=== PATIENT | female | born 1965 | race Caucasian/White ===

== ENCOUNTER 2017-04-01 13:55 | Inpatient (IN) | payer OTHER ==
[~2017-04-01] VITALS: Ht 162.6 cm; Wt 62.4 kg
[2017-04-01] MEDS ORDERED: ONDANSETRON 2MG/ML, 2ML IVPush ONE (15:00)
[2017-04-01] MEDS ORDERED: DICYCLOMINE 10 MG/ML, 2ML IM ONE (15:00)
[2017-04-01] MEDS ORDERED: SODIUM CHLORIDE 0.9% 1,000ML IVBOLUS ONE ×3 (15:00→17:30)
[2017-04-01] MEDS ORDERED: FAMOTIDINE 20 MG/2 ML IVP ONE (15:00)
[2017-04-01] MEDS ORDERED: PLEASE ENTER ALLERGIES MC SCH ×2 (15:00)
[2017-04-01] MEDS ORDERED: SODIUM CHLORIDE FLUSH 10ML SYR IVF ONE (15:00)
[2017-04-01 15:02] LABS: HEMATOCRIT 46.5 % (34.6-47.8); HEMOGLOBIN 16.1 g/dL (11.7-16.4); WHITE BLOOD COUNT 19.5 x10^3/uL (3.4-10)
[2017-04-01 15:16] LABS: BLOOD UREA NITROGEN 8 mg/dL (7-18)
[2017-04-01 15:19] LABS: ASPARTATE AMINO TRANSFERASE 72 U/L (15-37)
[2017-04-01] MEDS ORDERED: ONDANSETRON 2MG/ML, 2ML ONE (15:27)
[2017-04-01] MEDS ORDERED: MORPHINE SULFATE 4 MG/ML, 1ML ONE ×2 (15:27→18:05)
[2017-04-01] MEDS ORDERED: FAMOTIDINE 20 MG/2 ML ONE (15:27)
[2017-04-01 15:28] LABS: DIFF TOTAL CELLS COUNTED 100 CELL DIFF
[2017-04-01 15:29] LABS: VERIFY COUNTS? YES
[2017-04-01] MEDS: MORPHINE SULFATE 4 MG/ML, 1ML IVPush PRN ×2 (15:43→18:28)
[2017-04-01] MEDS ORDERED: OMNIPAQUE 350 MG/ML, 100ML BOTTLE ONE (17:59)
[2017-04-01] MEDS ORDERED: SODIUM CHLORIDE FLUSH 10ML SYR IVF PRN (18:30)
[2017-04-01] MEDS ORDERED: ONDANSETRON ODT 4 MG PO PRN (19:30)
[2017-04-01] MEDS ORDERED: LABETALOL 5MG/ML, 20ML IVPush PRN (19:30)
[2017-04-01] MEDS ORDERED: TEMAZEPAM 15 MG CAPSULE PO PRN (19:30)
[2017-04-01] MEDS ORDERED: ACETAMINOPHEN 325 MG TABLET PO PRN (19:30)
[2017-04-01] MEDS ORDERED: POTASSIUM CHLORIDE 20 MEQ TAB.ER.PRT PO ONE (19:30)
[2017-04-01] MEDS ORDERED: ONDANSETRON 2MG/ML, 2ML IVPush PRN (19:30)
[2017-04-01] MEDS ORDERED: POTASSIUM CHLORIDE 20 MEQ TAB.ER.PRT ONE (20:36)
[2017-04-01] MEDS ORDERED: NICOTINE 14MG/24 HR PATCH.TD24 ONE (20:37)
[2017-04-01] MEDS ORDERED: ENOXAPARIN 40 MG/0.4 ML ONE (20:37)
[2017-04-01] MEDS: NICOTINE 14MG/24 HR PATCH.TD24 TD SCH (20:42)
[2017-04-01] MEDS: ENOXAPARIN 40 MG/0.4 ML SQ SCH (20:43)
[2017-04-01] MEDS: POTASSIUM CHLORIDE 40 MEQ in D5%-0.9% NACL 1,000 ML IV SCH (20:43)
[2017-04-01] MEDS: VANCOMYCIN 50 MG/ML ORAL SUSP PO SCH (20:43)
[2017-04-01] MEDS: MAGNESIUM OXIDE 400 MG TABLET PO SCH (21:00)
[2017-04-01] MEDS: FAMOTIDINE 20 MG/2 ML IVPush SCH (21:00)
[2017-04-02] VITALS: BP 129/60
[2017-04-02] MEDS: morphine SULFATE 10 MG/ML, 1ML IVPush PRN ×5 (00:54→19:43)
[2017-04-02 01:27] VITALS: BP 125/81
[2017-04-02] MEDS: VANCOMYCIN 50 MG/ML ORAL SUSP PO SCH ×4 (05:01→20:37)
[2017-04-02] MEDS: POTASSIUM CHLORIDE 40 MEQ in D5%-0.9% NACL 1,000 ML IV SCH ×2 (06:10→12:18)
[2017-04-02 06:32] LABS: HEMATOCRIT 36.8 % (34.6-47.8); HEMOGLOBIN 12.5 g/dL (11.7-16.4); WHITE BLOOD COUNT 11.7 x10^3/uL (3.4-10)
[2017-04-02 06:49] LABS: ASPARTATE AMINO TRANSFERASE 36 U/L (15-37); BLOOD UREA NITROGEN 5 mg/dL (7-18)
[2017-04-02] MEDS: MAGNESIUM OXIDE 400 MG TABLET PO SCH (08:10)
[2017-04-02] MEDS: FAMOTIDINE 20 MG/2 ML IVPush SCH ×2 (08:10→20:38)
[2017-04-02 08:32] VITALS: BP 130/86
[2017-04-02] MEDS ORDERED: MAGNESIUM SULFATE PMX 4GM/100M 100 ML IV ONE (11:30)
[2017-04-02] MEDS: POTASSIUM CHLORIDE 20 MEQ TAB.ER.PRT PO SCH ×2 (11:44→17:58)
[2017-04-02 13:40] VITALS: BP 112/76
[2017-04-02] MEDS ORDERED: NS + 20MEQ KCL 1,000 ML IV SCH (15:00)
[2017-04-02 18:56] VITALS: BP 118/75
[2017-04-02] MEDS: NICOTINE 14MG/24 HR PATCH.TD24 TD SCH (19:43)
[2017-04-02] MEDS: ENOXAPARIN 40 MG/0.4 ML SQ SCH (19:43)
[2017-04-03 00:36] VITALS: BP 122/79
[2017-04-03] MEDS: morphine SULFATE 10 MG/ML, 1ML IVPush PRN ×4 (03:56→23:43)
[2017-04-03] MEDS: VANCOMYCIN 50 MG/ML ORAL SUSP PO SCH ×4 (03:56→20:15)
[2017-04-03] MEDS ORDERED: NS + 20MEQ KCL 1,000 ML IV SCH (04:30)
[2017-04-03 05:56] LABS: HEMATOCRIT 33.7 % (34.6-47.8); HEMOGLOBIN 11.5 g/dL (11.7-16.4); WHITE BLOOD COUNT 5.6 x10^3/uL (3.4-10)
[2017-04-03 06:08] LABS: ASPARTATE AMINO TRANSFERASE 132 U/L (15-37); BLOOD UREA NITROGEN 1 mg/dL (7-18)
[2017-04-03 08:20] VITALS: BP 128/90
[2017-04-03] MEDS: FAMOTIDINE 20 MG/2 ML IVPush SCH ×2 (08:46→20:35)
[2017-04-03] MEDS ORDERED: POTASSIUM PHOSPHATE 44 MEQ in SODIUM CHLORIDE 0.9% 500 ML IV ONE (10:00)
[2017-04-03] MEDS: LACTOBACILLUS CHEW TABLET PO SCH ×3 (11:50→20:36)
[2017-04-03] MEDS ORDERED: CALCIUM GLUCONATE 4.6 MEQ in SODIUM CHLORIDE 0.9% 50 ML IV ONE (14:30)
[2017-04-03 16:20] VITALS: BP 142/94
[2017-04-03 19:13] VITALS: BP 146/98
[2017-04-03] MEDS: ENOXAPARIN 40 MG/0.4 ML SQ SCH (19:30)
[2017-04-03] MEDS: NICOTINE 14MG/24 HR PATCH.TD24 TD SCH (20:36)
[2017-04-04 02:54] VITALS: BP 142/92
[2017-04-04] MEDS: VANCOMYCIN 50 MG/ML ORAL SUSP PO SCH ×3 (03:14→14:15)
[2017-04-04 05:47] LABS: BLOOD UREA NITROGEN 4 mg/dL (7-18)
[2017-04-04 05:50] LABS: ASPARTATE AMINO TRANSFERASE 66 U/L (15-37)
[2017-04-04] MEDS: LACTOBACILLUS CHEW TABLET PO SCH ×2 (06:00→12:00)
[2017-04-04 08:21] VITALS: BP 149/99
[2017-04-04] MEDS: FAMOTIDINE 20 MG/2 ML IVPush SCH (09:10)
[2017-04-04] MEDS ORDERED: ALPR-475 PO (13:05)
[2017-04-04] MEDS ORDERED: METR500T PO (13:05)
[2017-04-04 13:33] VITALS: BP 133/92
== END 2017-04-04 15:21 | disposition home or self-care (01) | DRG 872 ==
LOC: ED 17:04 → EDIP 18:22 → 4WST 21:53
PROVIDERS: ADMIT Internal Medicine; ATTEND Internal Medicine
DX: A41.9 Sepsis, unspecified organism (principal); A04.7 Enterocolitis due to Clostridium difficile; E44.0 Moderate protein-calorie malnutrition; E87.1 Hypo-osmolality and hyponatremia; E83.42 Hypomagnesemia; E86.0 Dehydration; E87.6 Hypokalemia; F17.200 Nicotine dependence, unspecified, uncomplicated; I10 Essential (primary) hypertension; F06.4 Anxiety disorder due to known physiological condition; M54.5 Low back pain; E83.39 Other disorders of phosphorus metabolism; Z88.0 Allergy status to penicillin; Z88.5 Allergy status to narcotic agent; Z68.23 Body mass index [BMI] 23.0-23.9, adult
CPT/HCPCS: 36415; 74020; 74177; 80053; 81003; 82330; 83605; 83690; 83735; 84100; 84145; 85025; 87040; 87324; 89055; 93005; 96361; 96372; 96374; 96375; 96376; J0610; J1650; J2405; J3370; J3480; J7042; Q9967; J0500; J2270; J3475; J7030; J7040; S0028

== ENCOUNTER → 2017-09-02 | Outpatient (CLI) | payer OTHER ==
[~2017-09-02] MED LIST: ALPR-475 PO; METR500T PO
[2017-09-02 08:35] LABS: BASOPHILS # (AUTO) 0.08 x10^3/uL (0-0.1); BASOPHILS % (AUTO) 1 % (0-1); EOSINOPHILS # (AUTO) 0.03 x10^3/uL (0-0.4); EOSINOPHILS % (AUTO) 0 % (1-7); LYMPHOCYTES # (AUTO) 1.85 x10^3/uL (1-3.4); LYMPHOCYTES % (AUTO) 23 % (22-44); MD NO; MEAN CORPUSCULAR HEMOGLOBIN 33.2 pg (27.0-34.8); MEAN CORPUSCULAR HGB CONC 34.1 g/dL (32.4-35.8); MEAN CORPUSCULAR VOLUME 97.4 fL (80-100); MEAN PLATELET VOLUME 8.8 fL (7.4-10.4); MONOCYTES # (AUTO) 0.62 x10^3/uL (0.2-0.8); MONOCYTES % (AUTO) 8 % (2-9); NEUTROPHILS # (AUTO) 5.34 x10^3/uL (1.8-6.8); NEUTROPHILS % (AUTO) 68 % (42-75); PLATELET COUNT 189 x10^3/uL (130-400); RED BLOOD COUNT 4.77 x10^6/uL (3.82-5.3); RED CELL DISTRIBUTION WIDTH 14.5 % (9.6-15.2)
[2017-09-02 08:43] LABS: ALBUMIN 4.4 g/dL (3.4-5.0); ANION GAP 11 mmol/L (5-15); CALCIUM 9.3 mg/dL (8.5-10.1); CHLORIDE 98 mmol/L (98-107); CHOLESTEROL, TOTAL 252 mg/dL (140-239)
[2017-09-02 08:52] LABS: ALANINE AMINOTRANSFERASE 89 U/L (12-78); ALKALINE PHOSPHATASE 104 U/L (45-117); CHOL/HDL RATIO 2.8; CREATININE 0.72 mg/dL (0.55-1.02); HDL CHOL % 35 % (28-40); HDL CHOLESTEROL (DIRECT) 89 mg/dL (40-60); LDL CHOLESTEROL,CALCULATED 143 mg/dL (54-169); LDL/HDL RATIO 1.6 (0.5-3.0); TOTAL PROTEIN 7.8 g/dL (6.4-8.2); TRIGLYCERIDES 100 mg/dL (50-200); VLDL CHOLESTEROL 20 mg/dL (0-25)
== END | disposition home or self-care (01) ==
LOC: LAB 08:19
PROVIDERS: ATTEND Nurse Practitioner Family
DX: F41.9 Anxiety disorder, unspecified (principal); L65.8 Other specified nonscarring hair loss; R00.2 Palpitations; R53.83 Other fatigue; R63.4 Abnormal weight loss
CPT/HCPCS: 36415; 80053; 80061; 82306; 84436; 84443; 84481; 85025

== ENCOUNTER 2019-01-09 07:31 | Emergency (ER) | payer MEDICAID ==
[~2019-01-09] VITALS: Ht 162.6 cm; Wt 64.0 kg
--- NOTE | 2019-01-09 07:59 | NUR ---
pt has co of leg swelling for 3 days and has developed rash on lower extremities. pt also states having "to breath deeper". denies any pain, nausea, vomiting. vs stable
[2019-01-09] MEDS ORDERED: METO25TA91 PO (08:09)
[2019-01-09] MEDS ORDERED: ESTR10TA9 PO (08:09)
[2019-01-09] MEDS ORDERED: chole (08:09)
[2019-01-09 08:38] LABS: ALANINE AMINOTRANSFERASE 21 U/L (12-78); ANION GAP 3 mmol/L (5-15); C-REACTIVE PROTEIN, QUANT 0.29 mg/dL (0.02-0.49); CALCIUM 8.7 mg/dL (8.5-10.1); CHLORIDE 110 mmol/L (98-107)
[2019-01-09 08:44] LABS: BASOPHILS # (AUTO) 0.04 x10^3/uL (0-0.1); BASOPHILS % (AUTO) 1 % (0-1); EOSINOPHILS # (AUTO) 0.09 x10^3/uL (0-0.4); EOSINOPHILS % (AUTO) 1 % (1-7); LYMPHOCYTES # (AUTO) 1.44 x10^3/uL (1-3.4); LYMPHOCYTES % (AUTO) 18 % (22-44); MD NO; MEAN CORPUSCULAR HEMOGLOBIN 30.5 pg (27.0-34.8); MEAN CORPUSCULAR HGB CONC 33.1 g/dL (32.4-35.8); MEAN CORPUSCULAR VOLUME 92.2 fL (80-100); MEAN PLATELET VOLUME 9.2 fL (7.4-10.4); MONOCYTES # (AUTO) 0.47 x10^3/uL (0.2-0.8); MONOCYTES % (AUTO) 6 % (2-9); NEUTROPHILS # (AUTO) 6.13 x10^3/uL (1.8-6.8); NEUTROPHILS % (AUTO) 75 % (42-75); PLATELET COUNT 184 x10^3/uL (130-400); RED BLOOD COUNT 4.48 x10^6/uL (3.82-5.3)
[2019-01-09 08:45] LABS: ALKALINE PHOSPHATASE 66 U/L (45-117); BILIRUBIN,TOTAL 0.4 mg/dL (0.2-1.0); TOTAL PROTEIN 5.5 g/dL (6.4-8.2)
[2019-01-09 08:46] LABS: HCT (SEDRATE) 41.3 % (34.6-47.8)
[2019-01-09 08:52] LABS: INTERNATIONAL NORMALIZED RATIO 0.91 (0.93-1.1); PROTHROMBIN TIME 9.6 Seconds (9.6-11.5)
[2019-01-09 09:46] VITALS: BP 108/75
--- NOTE | 2019-01-09 10:21 | NUR ---
PT Petros W INSTRUCTIONS AND ALL BELONGINGS
== END 2019-01-09 10:23 | disposition home or self-care (01) ==
LOC: ED 09:47
DX: R60.0 Localized edema (principal); I10 Essential (primary) hypertension; F41.9 Anxiety disorder, unspecified
CPT/HCPCS: 36415; 80053; 85025; 85610; 85651; 85730; 86140; 93005; 93970; 99284

== ENCOUNTER 2020-10-28 13:55 | Inpatient (IN) | payer MEDICAID ==
[~2020-10-28] VITALS: Ht 165.1 cm; Wt 59.3 kg
[~2020-10-28 13:55] MED LIST changes: -ALPR-475 PO; +ALPR0.5T7 PO; +ESTR10TA9 PO; +METO25TA91 PO; +chole
[2020-10-28] MEDS ORDERED: ALBUTEROL/IPRATROPIUM 2.5MG/0.5MG, 3 ML ONE (14:26)
[2020-10-28] MEDS ORDERED: PLEASE ENTER HEIGHT AND WEIGHT MC SCH (14:30)
[2020-10-28] MEDS ORDERED: ALBUTEROL/IPRATROPIUM 2.5MG/0.5MG, 3 ML NPPB ONE (14:30)
--- NOTE | 2020-10-28 14:37 | NUR ---
SISTER: CAPRICE [phone]
--- NOTE | 2020-10-28 14:37 | NUR ---
ASSUMED CARE OF PATIENT. PATIENT BIB [facility] FOR RIGHT SIDED FACE SWELLING. VS STABLE. NO ACUTE DISTRESS NOTED. PT SEEN BY DR DYSON. CALL LIGHT IN PLACE. WILL CONTINUE TO MONITOR.
[2020-10-28 14:43] LABS: ALBUMIN 4.2 g/dL (3.4-5.0); ANION GAP 8 mmol/L (5-15); CALCIUM 8.6 mg/dL (8.5-10.1); CHLORIDE 103 mmol/L (98-107)
[2020-10-28 14:45] LABS: CREATININE 0.47 mg/dL (0.55-1.02)
[2020-10-28 14:57] LABS: BASOPHILS % (AUTO) 1 % (0-1); EOSINOPHILS % (AUTO) 2 % (1-7); LYMPHOCYTES % (AUTO) 20 % (22-44); MEAN CORPUSCULAR HEMOGLOBIN 34.5 pg (27.0-34.8); MEAN CORPUSCULAR HGB CONC 34.4 g/dL (32.4-35.8); MEAN PLATELET VOLUME 8.9 fL (7.4-10.4); MONOCYTES % (AUTO) 5 % (2-9); NEUTROPHILS % (AUTO) 72 % (42-75); PLATELET COUNT 116 x10^3/uL (130-400); RED BLOOD COUNT 4.64 x10^6/uL (3.82-5.3); RED CELL DISTRIBUTION WIDTH 16.7 % (9.6-15.2)
[2020-10-28 14:59] LABS: MD NO
--- NOTE | 2020-10-28 14:59 | NUR ---
PT HAVING SOME ANXIETY. FAMILY IN ROOM. DR DYSON AWARE OF VS.
--- NOTE | 2020-10-28 15:08 | NUR ---
PT REPORTS SHE DRINKS A PINT A DAY. PT REPORTS SHE IS NOT DETOXING YET. VS STABLE. DR DYSON ARE OF VS. EKG DONE PER DR DYSON. PT WENT TO CT
[2020-10-28] MEDS ORDERED: OMNIPAQUE 350 MG/ML, 100ML BOTTLE ONE (15:20)
--- NOTE | 2020-10-28 15:33 | NUR ---
PT RESTING IN ROOM. ENERGY MANAGEMENT SPECIALIST ON. NSR NOTED. CALL LIGHT IN PLACE. WILL CONTINUE TO MONITOR .
--- NOTE | 2020-10-28 15:57 | NUR ---
DR DYSON AWARE OF VS. NO NEW ORDERS AT THIS TIME. PT RESTING IN ROOM WITH EYES CLOSED. SCULPTURE CONSERVATOR ON. SINUS TACH NOTED. WILL CONTINUE TO MONITOR.
--- NOTE | 2020-10-28 16:19 | NUR ---
DR DYSON HAS UPDATED PATIENT.
--- NOTE | 2020-10-28 16:28 | NUR ---
PT AMBULATED AROUND ROOM/FLORES PT'S ROOM AIR IS 82%. DR DYSON. AWARE. PT NOW RESTING IN ROOM. ON 3L NC AT 93%
[2020-10-28] MEDS ORDERED: CEFTRIAXONE PMX 1GM/50ML 50 ML IV ONE (17:00)
[2020-10-28] MEDS ORDERED: NEO/POLY/HC EAR SUSP 10ML RIGHT EAR SCH ×2 (17:00→21:00)
[2020-10-28] MEDS ORDERED: SODIUM CHLORIDE 0.9% 1,000ML IVBOLUS ONE (17:00)
[2020-10-28] MEDS ORDERED: CEFTRIAXONE PMX 1GM/50ML 50 ML ONE (17:16)
--- NOTE | 2020-10-28 17:20 | NUR ---
BOTH BLOOD CULTURES DRAWN BEFORE ABX GIVEN
--- NOTE | 2020-10-28 17:22 | NUR ---
BOTH BLOOD CULTURES DRAWN BEFORE ABX GIVEN
--- NOTE | 2020-10-28 17:25 | NUR ---
PT WENT TO CT
[2020-10-28] MEDS ORDERED: OMNIPAQUE 350 MG/ML, 75ML BOTTLE ONE (17:43)
--- NOTE | 2020-10-28 18:04 | NUR ---
PT BACK FROM CT. VS STABLE. NO ACUTE DISTRESS NOTED. CALL LIGHT IN PLACE. WILL CONTINUE TO MONITOR.
[2020-10-28] MEDS ORDERED: CHLORDIAZEPOXIDE 10 MG CAPSULE PO PRN (18:30)
--- NOTE | 2020-10-28 18:40 | NUR ---
PT WATCHING TV IN ROOM. NO ACUTE DISTRESS NOTED. HYPERCIL CORE TRANSFORMER ASSEMBLER ON. SINSU TACH NOTED. CALL LIGHT IN PLACE. WILL CONTINUE TO MONITOR.
--- NOTE | 2020-10-28 18:49 | NUR ---
REC'D REPORT FROM LOLY MAYORGA
--- NOTE | 2020-10-28 18:49 | NUR ---
REPORT GIVEN TO LOLY AKBAR
[2020-10-28] MEDS ORDERED: ONDANSETRON ODT 4 MG PO PRN (19:00)
[2020-10-28] MEDS ORDERED: BISACODYL 10 MG SUPP PR PRN (19:00)
[2020-10-28] MEDS ORDERED: POLYETHYLENE GLYCOL 17 GM PACKET PO PRN (19:00)
[2020-10-28] MEDS ORDERED: CHLORDIAZEPOXIDE 25 MG CAPSULE ONE (19:54)
[2020-10-28] MEDS: CHLORDIAZEPOXIDE 25 MG CAPSULE PO PRN (19:57)
--- NOTE | 2020-10-28 19:58 | NUR ---
PT AMBULATED FROM BATHROOM, RETURNED TO ROOM AND STATED SHE WAS FEELING VERY ANXIOUS AND TREMORS WERE NOTED. PT GIVEN PO LIBRIUM.
[2020-10-28 20:00] VITALS: BP 160/98
[2020-10-28] MEDS ORDERED: METO25TA4 PO (20:36)
[2020-10-28] MEDS ORDERED: LOSA50TA14 PO (20:36)
[2020-10-28] MEDS ORDERED: HYDR-826 PO (20:36)
[2020-10-28] MEDS ORDERED: FLUT15.812 NAS (20:36)
[2020-10-28] MEDS ORDERED: AZEL6DRO2 EACHEYE (20:36)
[2020-10-28] MEDS: KETOROLAC 30 MG/1 ML IM PRN (21:48)
[2020-10-28] MEDS: SODIUM CHLORIDE 0.9% 1,000 ML IV SCH (21:55)
[2020-10-28] MEDS: HEPARIN 5,000 UNITS/ML, 1ML SQ SCH (21:55)
[2020-10-28] MEDS: THIAMINE 100MG TABLET PO SCH (21:56)
[2020-10-28] MEDS: LORazepam 2 MG/ML, 1ML IVPush PRN (22:42)
[2020-10-28] MEDS: AZITHROMYCIN 500 MG in SODIUM CHLORIDE 0.9% 250 ML IV SCH (22:57)
[2020-10-29 02:00] VITALS: BP 163/93
[2020-10-29] MEDS: ACETAMINOPHEN 325 MG TABLET PO PRN ×2 (03:49→22:32)
[2020-10-29] MEDS: LORazepam 2 MG/ML, 1ML IVPush PRN ×2 (03:50→10:08)
[2020-10-29] MEDS: HEPARIN 5,000 UNITS/ML, 1ML SQ SCH ×3 (05:50→23:08)
[2020-10-29] MEDS: CHLORDIAZEPOXIDE 25 MG CAPSULE PO PRN ×2 (05:50→22:33)
[2020-10-29 05:56] LABS: BASOPHILS % (AUTO) 1 % (0-1); EOSINOPHILS % (AUTO) 1 % (1-7); LYMPHOCYTES % (AUTO) 10 % (22-44); MEAN CORPUSCULAR HGB CONC 34.1 g/dL (32.4-35.8); MEAN PLATELET VOLUME 8.8 fL (7.4-10.4); MONOCYTES % (AUTO) 5 % (2-9); NEUTROPHILS % (AUTO) 83 % (42-75); RED CELL DISTRIBUTION WIDTH 16.3 % (9.6-15.2)
[2020-10-29 06:08] LABS: CHLORIDE 98 mmol/L (98-107)
[2020-10-29 06:12] LABS: ANION GAP 8 mmol/L (5-15); CALCIUM 8.4 mg/dL (8.5-10.1); CREATININE 0.31 mg/dL (0.55-1.02)
[2020-10-29 06:28] LABS: PLATELET COUNT 87 x10^3/uL (130-400)
[2020-10-29 06:29] LABS: MD SCAN
[2020-10-29 08:00] VITALS: BP 138/94
[2020-10-29] MEDS: SODIUM CHLORIDE 0.9% 1,000 ML IV SCH ×2 (08:10→18:27)
[2020-10-29] MEDS: SENNA/DOCUSATE TABLET PO SCH (10:02)
[2020-10-29] MEDS: FOLIC ACID 1 MG TABLET PO SCH (10:02)
[2020-10-29] MEDS: MULTIVITAMINS/MINERALS TABLET PO SCH (10:02)
[2020-10-29] MEDS: THIAMINE 100MG TABLET PO SCH ×2 (10:02→22:32)
[2020-10-29] MEDS: NEO/POLY/HC EAR SUSP 10ML RIGHT EAR SCH ×3 (10:02→22:33)
[2020-10-29 12:45] VITALS: BP 142/96
[2020-10-29] MEDS: CEFTRIAXONE PMX 1GM/50ML 50 ML IV SCH (18:28)
[2020-10-29 20:00] VITALS: BP 143/86
[2020-10-29 22:29] VITALS: BP 136/91
[2020-10-29] MEDS: METOPROLOL TARTRATE 25 MG TAB PO SCH (22:32)
[2020-10-29] MEDS: AZITHROMYCIN 500 MG in SODIUM CHLORIDE 0.9% 250 ML IV SCH (23:06)
[2020-10-29] MEDS: KETOROLAC 30 MG/1 ML IM PRN (23:07)
[2020-10-30 01:04] VITALS: BP 141/87
[2020-10-30] MEDS: SODIUM CHLORIDE 0.9% 1,000 ML IV SCH ×2 (03:30→16:17)
[2020-10-30] MEDS: LORazepam 2 MG/ML, 1ML IVPush PRN ×2 (04:34→09:05)
[2020-10-30 04:58] LABS: BASOPHILS % (AUTO) 1 % (0-1); EOSINOPHILS % (AUTO) 2 % (1-7); LYMPHOCYTES % (AUTO) 17 % (22-44); MEAN CORPUSCULAR HEMOGLOBIN 34.2 pg (27.0-34.8); MEAN CORPUSCULAR HGB CONC 34.6 g/dL (32.4-35.8); MEAN PLATELET VOLUME 9.1 fL (7.4-10.4); MONOCYTES % (AUTO) 8 % (2-9); NEUTROPHILS % (AUTO) 72 % (42-75); PLATELET COUNT 64 x10^3/uL (130-400); RED BLOOD COUNT 4.31 x10^6/uL (3.82-5.3); RED CELL DISTRIBUTION WIDTH 15.7 % (9.6-15.2)
[2020-10-30 05:51] LABS: MD SCAN
[2020-10-30 05:57] LABS: ANION GAP 9 mmol/L (5-15); CALCIUM 8.6 mg/dL (8.5-10.1); CHLORIDE 100 mmol/L (98-107); CREATININE 0.41 mg/dL (0.55-1.02)
[2020-10-30] MEDS: NEO/POLY/HC EAR SUSP 10ML RIGHT EAR SCH ×4 (06:44→21:20)
[2020-10-30] MEDS: HEPARIN 5,000 UNITS/ML, 1ML SQ SCH ×3 (08:10→23:00)
[2020-10-30 08:16] VITALS: BP 159/108
[2020-10-30] MEDS: SENNA/DOCUSATE TABLET PO SCH (09:00)
[2020-10-30] MEDS: THIAMINE 100MG TABLET PO SCH ×2 (09:05→21:20)
[2020-10-30] MEDS: MULTIVITAMINS/MINERALS TABLET PO SCH (09:05)
[2020-10-30] MEDS: METOPROLOL TARTRATE 25 MG TAB PO SCH ×2 (09:05→21:20)
[2020-10-30] MEDS: LOSARTAN 50MG TABLET PO SCH (09:05)
[2020-10-30] MEDS: FOLIC ACID 1 MG TABLET PO SCH (09:05)
[2020-10-30] MEDS: POTASSIUM CHLORIDE 20 MEQ TAB.ER.PRT PO SCH (09:06)
[2020-10-30] MEDS: FLUTICASONE NASAL SPRAY 16GM NAS SCH (11:01)
[2020-10-30 13:41] VITALS: BP 146/100
[2020-10-30] MEDS: CHLORDIAZEPOXIDE 25 MG CAPSULE PO PRN ×2 (14:08→21:42)
[2020-10-30] MEDS: CEFTRIAXONE PMX 1GM/50ML 50 ML IV SCH (17:12)
[2020-10-30 18:38] VITALS: BP 143/93
[2020-10-30] MEDS: AZITHROMYCIN 500 MG in SODIUM CHLORIDE 0.9% 250 ML IV SCH (21:56)
[2020-10-31 00:10] VITALS: BP 147/85
[2020-10-31] MEDS: CHLORDIAZEPOXIDE 25 MG CAPSULE PO PRN ×3 (05:25→23:26)
[2020-10-31] MEDS: SODIUM CHLORIDE 0.9% 1,000 ML IV SCH ×2 (05:26→22:01)
[2020-10-31] MEDS: NEO/POLY/HC EAR SUSP 10ML RIGHT EAR SCH ×4 (05:26→22:01)
[2020-10-31 06:06] LABS: ALANINE AMINOTRANSFERASE 180 U/L (12-78); ALBUMIN 3.4 g/dL (3.4-5.0); ANION GAP 8 mmol/L (5-15); CALCIUM 9.5 mg/dL (8.5-10.1); CHLORIDE 104 mmol/L (98-107); CREATININE 0.45 mg/dL (0.55-1.02)
[2020-10-31 06:08] LABS: ALKALINE PHOSPHATASE 226 U/L (45-117); BILIRUBIN,TOTAL 0.7 mg/dL (0.2-1.0); TOTAL PROTEIN 7.1 g/dL (6.4-8.2)
[2020-10-31] MEDS: HEPARIN 5,000 UNITS/ML, 1ML SQ SCH ×3 (07:00→23:16)
[2020-10-31 07:51] VITALS: BP 149/105
[2020-10-31] MEDS: LOSARTAN 50MG TABLET PO SCH (08:07)
[2020-10-31] MEDS: FOLIC ACID 1 MG TABLET PO SCH (08:07)
[2020-10-31] MEDS: FLUTICASONE NASAL SPRAY 16GM NAS SCH (08:07)
[2020-10-31] MEDS: MULTIVITAMINS/MINERALS TABLET PO SCH (08:07)
[2020-10-31] MEDS: METOPROLOL TARTRATE 25 MG TAB PO SCH ×2 (08:07→22:01)
[2020-10-31] MEDS: POTASSIUM CHLORIDE 20 MEQ TAB.ER.PRT PO SCH (08:07)
[2020-10-31] MEDS: THIAMINE 100MG TABLET PO SCH ×2 (08:07→22:01)
[2020-10-31] MEDS: SENNA/DOCUSATE TABLET PO SCH (08:08)
[2020-10-31] MEDS ORDERED: MAGNESIUM SULFATE PMX 4GM/100M 100 ML IVPB ONE (11:30)
[2020-10-31 13:08] VITALS: BP 166/114
[2020-10-31] MEDS: CEFTRIAXONE PMX 1GM/50ML 50 ML IV SCH (16:46)
[2020-10-31 18:33] VITALS: BP 137/92
[2020-10-31] MEDS: AZITHROMYCIN 500 MG in SODIUM CHLORIDE 0.9% 250 ML IV SCH (22:00)
[2020-10-31 22:01] VITALS: BP 141/98
[2020-11-01 01:03] VITALS: BP 130/80
[2020-11-01 05:35] LABS: BASOPHILS % (AUTO) 3 % (0-1); EOSINOPHILS % (AUTO) 4 % (1-7); LYMPHOCYTES % (AUTO) 26 % (22-44); MEAN CORPUSCULAR HEMOGLOBIN 34.3 pg (27.0-34.8); MEAN CORPUSCULAR HGB CONC 33.5 g/dL (32.4-35.8); MEAN PLATELET VOLUME 9.4 fL (7.4-10.4); MONOCYTES % (AUTO) 11 % (2-9); NEUTROPHILS % (AUTO) 56 % (42-75); PLATELET COUNT 78 x10^3/uL (130-400)
[2020-11-01 05:39] LABS: CHLORIDE 106 mmol/L (98-107)
[2020-11-01 05:48] LABS: ALANINE AMINOTRANSFERASE 156 U/L (12-78); ALBUMIN 3.1 g/dL (3.4-5.0); ALKALINE PHOSPHATASE 191 U/L (45-117); ANION GAP 7 mmol/L (5-15); BILIRUBIN,TOTAL 0.4 mg/dL (0.2-1.0); CALCIUM 8.9 mg/dL (8.5-10.1); CREATININE 0.57 mg/dL (0.55-1.02); TOTAL PROTEIN 6.4 g/dL (6.4-8.2)
[2020-11-01] MEDS: NEO/POLY/HC EAR SUSP 10ML RIGHT EAR SCH ×2 (05:54→10:23)
[2020-11-01 06:04] LABS: MD SCAN
[2020-11-01] MEDS: HEPARIN 5,000 UNITS/ML, 1ML SQ SCH ×2 (07:00→14:46)
[2020-11-01] MEDS ORDERED: AZIT250T PO ×3 (07:29→09:30)
[2020-11-01 08:25] VITALS: BP 149/99
[2020-11-01] MEDS: SENNA/DOCUSATE TABLET PO SCH (09:00)
[2020-11-01] MEDS ORDERED: METO25TA4 PO (09:30)
[2020-11-01] MEDS ORDERED: HYDR-826 PO (09:30)
[2020-11-01] MEDS ORDERED: LOSA50TA14 PO (09:30)
[2020-11-01] MEDS: MULTIVITAMINS/MINERALS TABLET PO SCH (10:19)
[2020-11-01] MEDS: POTASSIUM CHLORIDE 20 MEQ TAB.ER.PRT PO SCH (10:19)
[2020-11-01] MEDS: LOSARTAN 50MG TABLET PO SCH (10:20)
[2020-11-01] MEDS: METOPROLOL TARTRATE 25 MG TAB PO SCH (10:20)
[2020-11-01] MEDS: THIAMINE 100MG TABLET PO SCH (10:20)
[2020-11-01] MEDS: FOLIC ACID 1 MG TABLET PO SCH (10:20)
[2020-11-01] MEDS: FLUTICASONE NASAL SPRAY 16GM NAS SCH (10:22)
== END 2020-11-01 15:50 | disposition home or self-care (01) | DRG 154 ==
LOC: ED 14:47 → EDIP 18:34 → 4EST 20:04 → DCLOUNGE 11-01 15:43
PROVIDERS: ADMIT Family Medicine; ATTEND Hospitalist
DX: K11.20 Sialoadenitis, unspecified (principal); J15.9 Unspecified bacterial pneumonia; J96.01 Acute respiratory failure with hypoxia; E87.2 Acidosis; F10.239 Alcohol dependence with withdrawal, unspecified; D69.6 Thrombocytopenia, unspecified; D75.89 Other specified diseases of blood and blood-forming organs; F17.210 Nicotine dependence, cigarettes, uncomplicated; I10 Essential (primary) hypertension; K76.89 Other specified diseases of liver; Z20.822 Contact with and (suspected) exposure to COVID-19; Z88.5 Allergy status to narcotic agent; Z88.0 Allergy status to penicillin
CPT/HCPCS: 36415; 70491; 71045; 71275; 80048; 80053; 82040; 82607; 83605; 83735; 85025; 85379; 87040; 93005; 96365; G0378; J0456; J0696; J1644; J1885; Q0162; Q9967; J2060; J3475; J7030; J7050; U0003

== ENCOUNTER 2020-11-22 20:13 | Emergency (ER) | payer MEDICAID ==
[~2020-11-22 20:13] MED LIST changes: +AZEL6DRO2 EACHEYE; +AZIT250T PO; +FLUT15.812 NAS; +HYDR-826 PO; +LOSA50TA14 PO; +METO25TA4 PO
--- NOTE | 2020-11-22 20:35 | NUR ---
PT AMBULATORY TO ROOM 34 W/ C/O SOB STARTED A FEW DAYS AGO AND ALSO C/O SHAKING FROM ETOH WITHDRAWAL. PT STATES SHE FINISHED A 5 DAY COURSE DETOX 2 WEEKS AGO AND WAS DOING WELL UNTIL SHE GOT AN EVICTION NOTICE 3 DAYS AGO AND STARTED DRINKING ETOH HEAVILY. STATES HER LAST DRINK WAS LAST NIGHT. PT RESTING ON GURNEY. MONITORS APPLIED. WARM BLANKET PROVIDED.
--- NOTE | 2020-11-22 21:03 | NUR ---
REPORT GIVEN TO LOLY CUENCA.
--- NOTE | 2020-11-22 21:19 | NUR ---
Waiting for further orders.
[2020-11-22] MEDS ORDERED: THIAMINE 100MG TABLET ONE (21:45)
[2020-11-22] MEDS ORDERED: LORazepam 2 MG/ML, 1ML ONE ×2 (21:46→23:04)
[2020-11-22] MEDS: LORazepam 2 MG/ML, 1ML IVPush PRN ×2 (21:52→23:12)
--- NOTE | 2020-11-22 21:58 | NUR ---
Pt up ambulates to bathroom, pt bilat hand tremors. HR 100. Medicated with ativan per order, on monitor, seizure precautions sister at bedside.
[2020-11-22] MEDS ORDERED: THIAMINE 100MG TABLET PO ONE (22:00)
[2020-11-22 22:04] LABS: BASOPHILS % (AUTO) 3 % (0-1); EOSINOPHILS % (AUTO) 1 % (1-7); LYMPHOCYTES % (AUTO) 23 % (22-44); MEAN CORPUSCULAR HGB CONC 34.9 g/dL (32.4-35.8); MEAN PLATELET VOLUME 9.3 fL (7.4-10.4); MONOCYTES % (AUTO) 13 % (2-9); NEUTROPHILS % (AUTO) 60 % (42-75); PLATELET COUNT 225 x10^3/uL (130-400); RED CELL DISTRIBUTION WIDTH 15.8 % (9.6-15.2)
[2020-11-22 22:11] LABS: MD NO
[2020-11-22 22:14] LABS: ALBUMIN 4.9 g/dL (3.4-5.0); ANION GAP 10 mmol/L (5-15); CALCIUM 9.5 mg/dL (8.5-10.1); CHLORIDE 97 mmol/L (98-107); CREATININE 0.47 mg/dL (0.55-1.02)
--- NOTE | 2020-11-22 22:37 | NUR ---
Dr Cabral at bedside for re-eval. VSS. Pt less tremulous.
[2020-11-22] MEDS ORDERED: CHLORDIAZEPOXIDE 25 MG CAPSULE ONE (22:46)
[2020-11-22] MEDS ORDERED: CHLORDIAZEPOXIDE 25 MG CAPSULE PO PRN (23:00)
--- NOTE | 2020-11-22 23:03 | NUR ---
During dc pt noted to have strong tremors, HR up to 105. IV restarted and consult with dr george to repeat ativan prior to dc. Ok per dr george. On monitor. side rails up.
--- NOTE | 2020-11-22 23:12 | NUR ---
Back in [facility], medicated with additional ativan 1mg IV, computer in room now not working. On cont pulse ox, call reis. aidet provided.
--- NOTE | 2020-11-22 23:54 | NUR ---
Very stable, minimal tremors feels better, IV dc cath intact. VSS. Cab called for pt, dc home with instruct and rx. Pt verbalizes understanding of all intruct.
[2020-11-22 23:55] VITALS: BP 125/71
== END 2020-11-22 23:57 ==
LOC: ED 23:33
DX: F10.139 Alcohol abuse with withdrawal, unspecified (principal); J44.1 Chronic obstructive pulmonary disease with (acute) exacerbation; R06.02 Shortness of breath; R06.00 Dyspnea, unspecified; I10 Essential (primary) hypertension; R11.0 Nausea; Z88.8 Allergy status to other drugs, medicaments and biological substances; Z79.899 Other long term (current) drug therapy; Y90.0 Blood alcohol level of less than 20 mg/100 ml
CPT/HCPCS: 36415; 71045; 80048; 82040; 84145; 85025; 96374; 96376; 99284; J2060

== ENCOUNTER 2020-12-16 12:57 | Emergency (ER) | payer MEDICAID ==
[~2020-12-16] VITALS: Ht 165.1 cm; Wt 65.0 kg
--- NOTE | 2020-12-16 13:12 | NUR ---
PT BIBA, C/O RUQ PAIN, PT STATES THE PAIN IS IN HER RIGHT LUNG. PER EMS, PT WAS TREATED HERE FOR PNA 2 WEEKS AGO. PT ADMITS TO ETOH CONSUMPTION TODAY. PT A&O, RESPS EVEN AND UNLABORED, VSS. CALL LIGHT IN REACH.
--- NOTE | 2020-12-16 13:29 | NUR ---
PIV PLACED BY WORKFORCE DEVELOPMENT VICE PRESIDENT STUDENT. PT AWARE URINE SAMPLE NEEDED, UA SUPPLIES AT BEDSIDE.
[2020-12-16] MEDS ORDERED: PROCHLORPERAZINE 5 MG/ML, 2ML IVPush ONE (13:30)
[2020-12-16] MEDS ORDERED: SODIUM CHLORIDE 0.9% 1,000ML IVBOLUS ONE (13:30)
[2020-12-16] MEDS ORDERED: SODIUM CHLORIDE FLUSH 10ML SYR IVF ONE (13:30)
[2020-12-16 13:46] LABS: BASOPHILS % (AUTO) 2 % (0-1); EOSINOPHILS % (AUTO) 0 % (1-7); LYMPHOCYTES % (AUTO) 22 % (22-44); MEAN CORPUSCULAR HEMOGLOBIN 34.9 pg (27.0-34.8); MEAN CORPUSCULAR HGB CONC 34.2 g/dL (32.4-35.8); MEAN PLATELET VOLUME 8.5 fL (7.4-10.4); MONOCYTES % (AUTO) 11 % (2-9); NEUTROPHILS % (AUTO) 65 % (42-75); PLATELET COUNT 204 x10^3/uL (130-400); RED BLOOD COUNT 4.25 x10^6/uL (3.82-5.3); RED CELL DISTRIBUTION WIDTH 14.9 % (9.6-15.2)
[2020-12-16 13:47] LABS: ANION GAP 15 mmol/L (5-15); CALCIUM 8.3 mg/dL (8.5-10.1); CHLORIDE 99 mmol/L (98-107)
[2020-12-16 13:50] LABS: ALANINE AMINOTRANSFERASE 125 U/L (12-78); ALKALINE PHOSPHATASE 143 U/L (45-117); BILIRUBIN,TOTAL 0.6 mg/dL (0.2-1.0); CREATININE 0.46 mg/dL (0.55-1.02); TOTAL PROTEIN 7.5 g/dL (6.4-8.2)
[2020-12-16 13:51] LABS: MICROSCOPIC AUTO
[2020-12-16 13:56] LABS: MD NO
[2020-12-16] MEDS ORDERED: D5%-LACTATED RINGERS 1,000 ML IV SCH (14:30)
[2020-12-16] MEDS ORDERED: PROCHLORPERAZINE 5 MG/ML, 2ML ONE (14:47)
--- NOTE | 2020-12-16 15:40 | NUR ---
PT RESTING IN BED, RESPS EVEN AND UNLABORED, VSS, NADN. FLUIDS INFUSING, WARM BLANKET PROVIDED, CALL LIGHT IN REACH.
[2020-12-16 16:38] VITALS: BP 111/72
--- NOTE | 2020-12-16 16:38 | NUR ---
PT ASLEEP IN BED, VSS, NADN, RESPS EVEN AND UNLABORED. 2ND BAG OF FLUIDS INFUSING.
--- NOTE | 2020-12-16 16:59 | NUR ---
ANDRE VILLALTA AT BEDSIDE TO DISCUSS POC
--- NOTE | 2020-12-16 18:04 | NUR ---
FINISHING LR FLUID INFUSION THEN DC
--- NOTE | 2020-12-16 18:28 | NUR ---
PT EDUCATED ON DISCHARGE INSTRUCTIONS, PRESCRIPTION, AND FOLLOW-UP, VERBALIZED UNDERSTANDING. AMBULATORY TO DISCHARGE WITH STEADY GAIT, BUS PASS PROVIDED. NO COMPLAINTS AT TIME OF DISCHARGE.
== END 2020-12-16 18:32 | disposition home or self-care (01) ==
LOC: ED 13:12
DX: K29.20 Alcoholic gastritis without bleeding (principal); R10.11 Right upper quadrant pain; I10 Essential (primary) hypertension; J44.9 Chronic obstructive pulmonary disease, unspecified; F17.200 Nicotine dependence, unspecified, uncomplicated; F10.10 Alcohol abuse, uncomplicated; K70.0 Alcoholic fatty liver; R11.10 Vomiting, unspecified; Y90.0 Blood alcohol level of less than 20 mg/100 ml
CPT/HCPCS: 36415; 76700; 80053; 81001; 82962; 83690; 85025; 87086; 96361; 96374; 99285; J0780; J7030; J7121

== ENCOUNTER 2021-02-24 11:05 | Emergency (ER) | payer MEDICAID ==
[~2021-02-24] VITALS: Ht 165.1 cm; Wt 59.9 kg
[2021-02-24 11:34] VITALS: BP 126/98
--- NOTE | 2021-02-24 12:00 | NUR ---
PT PRESENTS WITH C/O PRODUCTIVE COUGH X3 WEEKS, STATES SHE NEEDS RAPID COVID TEST TO GET BACK TO WORK.
== END 2021-02-24 13:32 | disposition home or self-care (01) ==
LOC: ED 13:26
DX: B34.9 Viral infection, unspecified (principal); J44.9 Chronic obstructive pulmonary disease, unspecified; Z20.822 Contact with and (suspected) exposure to COVID-19; R19.7 Diarrhea, unspecified; I10 Essential (primary) hypertension; Z88.0 Allergy status to penicillin
CPT/HCPCS: 71045; 99284; U0003; U0005